=== PATIENT | male | born 1950 | race Caucasian/White ===

== ENCOUNTER 2018-01-16 12:54 | Outpatient (REF) | payer MEDICARE, OTHER, SELFPAY ==
[2018-01-16 13:21] LABS: Anion Gap 8.9 mmol/L (3-11); BUN 18 mg/dL (7-18); CO2 27.1 mmol/L (21.0-32.0); Calcium 8.8 mg/dL (8.5-10.1); Chloride 106 mmol/L (98-107); Glucose 98 mg/dL (70-100); Potassium 4.5 mmol/L (3.5-5.1); Sodium 142 mmol/L (136-145)
[2018-01-16 13:36] LABS: Cholesterol 173 mg/dL (50-200); HDL Cholesterol 48 mg/dL (40-60); LDL CHOLESTEROL 108 mg/dL (<100); Triglyceride 104 mg/dL (30-150)
== END 2018-01-16 13:14 ==
LOC: NCHCN 12:54
PROVIDERS: PCP Nurse Practitioner; Visit Provider Nurse Practitioner
DX: I10 Essential (primary) hypertension (principal)
CPT/HCPCS: 80048; 80061; 83721

== ENCOUNTER 2018-04-20 09:21 | Outpatient (REF) | payer MEDICARE, OTHER, SELFPAY ==
[2018-04-20 12:38] LABS: Cholesterol 176 mg/dL (50-200); HDL Cholesterol 58 mg/dL (40-60); LDL CHOLESTEROL 100 mg/dL (<100); Triglyceride 79 mg/dL (30-150)
== END 2018-04-20 09:41 ==
LOC: NCHCN 09:21
PROVIDERS: PCP Nurse Practitioner; Visit Provider Nurse Practitioner
DX: I25.10 Atherosclerotic heart disease of native coronary artery without angina pectoris (principal)
CPT/HCPCS: 80061; 83721

== ENCOUNTER 2018-07-22 10:23 | Emergency (ER) | payer MEDICARE, OTHER, SELFPAY ==
[2018-07-22 10:26] VITALS: BP 180/112; PULSE 78; RESP 20; TEMP 36.9; O2SAT 96
--- NOTE | 2018-07-22 10:36 | DI.CT_ITS ---
SYMPTOM/DIAGNOSIS: FALL, HIT POSTERIOR HEAD CRANIAL CT: 07/22/[address] was performed. There is partial opacification of maxillary and ethmoid sinuses bilaterally consistent with chronic sinusitis. Left mastoid air cells are opacified and there appears to be increased radiodensity in middle ear cavity as well, mastoiditis and/or cholesteatoma not excluded. There is moderate generalized cerebral atrophy. No evidence of acute intracranial hemorrhage, mass effect or midline shift. CONCLUSION: No evidence of acute intracranial injury. Increased radiodensity in left mastoid air cells and middle ear cavity, mastoiditis and/or cholesteatoma. Correlation with temporal bone CT and/or MRI recommended. CERVICAL SPINE CT: 07/22/18 CT examination of the cervical spine was performed utilizing multislice acquisition and multiplanar reconstruction. There are mild degenerative changes of the cervical spine. No evidence of fracture or facet dislocation. Tracheolaryngeal structures appear intact. No cervical mass or adenopathy seen. Visualized lung apices are clear. CONCLUSION: No evidence of acute cervical injury.
--- NOTE | 2018-07-22 10:41 | ED.GENADUL_ITS ---
Discharge Plan Disposition Patient Disposition: HOME Condition: Good Discharge Details Chief Complaint: HeadInjury Clinical Impression: Concussion, Fall Primary Care Provider: May Martinez ED Provider: Ricardo Orr Home Meds and New Rx's Prescriptions: No Action multivitamin [Multiple Vitamins] 1 EACH tablet 1 ea PO DAILY RF: 0 aspirin [Aspir-81] 81 MG tablet,delayed release (DR/EC) 81 mg PO DAILY RF: 0 amlodipine [Norvasc] 10 MG tablet 10 mg PO DAILY RF: 0 fluticasone propion-salmeterol [Advair Diskus] 1 EACH blister with device 1 puff Inhalation BID RF: 0 saw palmetto-pumpkin seed oil 160 MG capsule 160 mg PO DAILY RF: 0 Fluticasone/Salmeterol [Fluticasone-Salmeterol 113-14] 1 EACH AER.POW.BA 1 ea Inhalation BID RF: 0 fluvastatin 40 mg Capsule 40 mg PO DAILY RF: 0 Discharge Instructions Instructions: Concussion (ED) Additional Instructions: If you notice any worsening of your symptoms, or any new symptoms such as vomiting, diarrhea, fever, chills, shortness of breath, chest pain, numbness, weakness, or fainting , please return immediately to the emergency department for reevaluation. Please follow up with your primary care provider as soon as possible for reassessment and reevaluation. As always, it was a pleasure participating in your medical care today. Referrals: May Martinez [Primary Care Provider] - Medical Decision Making This is a 68-year-old male with a past medical history of updated tetanus 2017, hypertension high cholesterol who presents today for evaluation of a fall. Patient had a mechanical slip on ice and hit the back of his head. No loss of consciousness. He was dazed and confused for the first 10-15 minutes after the episode, however this improved and resolved by the time he arrived. He has a small abrasion on the superior aspect of his posterior scalp. No evidence of concerning red flags of midline tenderness, hemotympanum, or neurologic deficit on exam. Due to the patient's age, aspirin use, and initial event and mechanism, will get a CT scan of the head neck to rule out acute pr ocess. If this is negative I feel the patient has suffered from a concussion from his fall, will require rest close follow-up otherwise. 12:[address] scan results have returned the head and neck, there is no evidence of acute fracture, bleed, or other acute process. Patient's repeat neurologic exam continues to remain normal, mental status is excellent. I feel he has suffered from a mild concussion. We discussed red flags which to return. I have extensively reviewed the treatment plan and discharge instructions with the patient. I have addressed all patient concerns at this time. The patient was made aware of what symptoms to monitor for that would warrant a return to the emergency department. Discussed the plan with the patient, they demonstrate verbal understanding and agreement with our assessment and plan at this time. COMPARISON: No relevant prior studies available. FINDINGS: Brain: No acute intracranial hemorrhage. There is mild diffuse heterogeneity of the white matter attenuation, consistent with chronic white matter ischemic changes. Mild cerebral atrophy Ventricles: Normal. No ventriculomegaly. Bones/joints: Unremarkable. No acute fracture. Sinuses: Opacities in the maxillary sinuses and ethmoid sinuses and frontal sinuses may represent sinusitis. Mastoid air cells: Visualized mastoid air cells are unremarkable. No mastoid effusion. Soft tissues: Unremarkable. IMPRESSION: 1. No acute intracranial hemorrhage. 2. Opacities in the maxillary sinuses and ethmoid sinuses and frontal sinuses may represent sinusitis. EXAM: CT Cervical Spine Without Contrast EXAM DATE/TIME: 07/22/2018 10:37 AM CLINICAL HISTORY: 68 years old, male; Injury or trauma; Fall; Initial encounter; Concussion / head injury; Consciousness not specified; Concussion /head injury; Injury details: Fall. Hit posterior head TECHNIQUE: Imaging protocol: Axial computed tomography images of the cervical spine without intravenous contrast. Coronal and sagittal reformatted images were created and reviewed. Radiation optimization: All CT scans at this facility use at least one of these dose optimization techniques: automated exposure control; mA and/or kV adjustment per patient size (includes targeted exams where dose is matched to clinical indication); or iterative reconstruction. COMPARISON: No relevant prior studies available. FINDINGS: Vertebrae: No acute fracture of the cervical spine. No subluxation or dislocation of the cervical spine. Anterior osteophyte formation C5-C7 Degenerative changes in the facets at multiple levels Degenerative changes at C1/C2 Discs/Spinal canal/Neural foramina: Intervertebral disc space narrowing C5-C7 may represent degenerative disc disease.. Posterior osteophyte formation C5-C7. Soft tissues: Unremarkable. Thyroid: The thyroid is unremarkable Lungs: Lung apices are normal. IMPRESSION: 1. No acute fracture of the cervical spine. 2. No subluxation or dislocation of the cervical spine. 3. Intervertebral disc space narrowing C5-C7 may represent degenerative disc disease. Recommend MRI for further evaluation. Dictated and Authenticated by: Rebekah Richmond MD. Ordering:ALEXUS Silva MD HPI General Date/Time Provider Initiated Documentation: 07/22/18 10:36 . HPI Narrative: This is a 68-year-old male with a past medical history of hypertension, high cholesterol, taking a daily 81 mg aspirin, who presents today for evaluation of fall and hitting his head. Roughly 30-45 minutes prior to arrival he slipped on ice, fell and hit the back of his head. He had no loss of consciousness but was slightly dazed and confused for the 10-15 minutes after the initial event. He is able to walk, ambulate, and had no vomiting, or severe headache. However his significant other did recommend that he come in for further evaluation due to his slight change in mentation initially. At this point the patient and his significant other state that he is returned to his baseline, he does have mild headache in the back of his head, but denies any vision changes, vomiting, nausea, chest pain, neck pain, numbness tingling or weakness, fever, chills or other complaints. Aside for his daily aspirin he is not on any other blood thinners. He denies any other modifying factors or any other complaints. Related Data Home Medications Medication Instructions Recorded Confirmed Fluticasone/Salmeterol 1 ea INHALATION BID 09/28/17 07/22/18 [Fluticasone-Salmeterol 113-14] amlodipine [Norvasc] 10 mg PO DAILY tab-cap 09/28/17 07/22/18 aspirin [Aspir 81] 81 mg PO DAILY tab-cap 09/28/17 07/22/18 fluticasone propion-salmeterol 1 puff INHALATION BID disk 09/28/17 07/22/18 [Advair 100/50 Diskus] multivitamin [Multiple Vitamins] 1 ea PO DAILY 09/28/17 07/22/18 saw palmetto-pumpkin seed oil 160 mg PO DAILY 09/28/17 07/22/18 fluvastatin 40 mg PO DAILY 07/22/18 07/22/18 Allergies Allergy/AdvReac Type Severity Reaction Status Date / Time crab Allergy Severe facial Unverified 07/22/18 10:31 swelling lisinopril Allergy Severe tongue Unverified 07/22/18 10:31 swells environmental Allergy Intermediate rhinitis Uncoded 07/22/18 10:31 General Stated Complaint: HeadInjury ZOEY: 3 Review of Systems Review of Systems All systems reviewed & are unremarkable except as noted in HPI and below PFSH Social History Smoking/Tobacco Use Status: Never Alcohol Intake: current Alcohol Intake frequency: 0-2 drinks per day Alcohol type: wine Substance use type: does not use Exam Narrative Exam Narrative: 1.Const: Well-nourished, Well-developed, appearing stated age 2.Eyes: PERRL, no conjunctival injection, and symmetrical lids. 3.ENT: Atraumatic external nose and ears. Moist MM. Neck: Symmetric, trachea midline, No thyromegaly. Patient demonstrates intact dentition with no signs of tooth avulsion or fracture, no signs of jaw deformity, no evidence of a LeFort's fracture, with an intact palate, nose and orbital region. There is no evidence of a nasal septal hematoma. No proptosis. Jaw closes symmetrically. Airway is clear. There is no evidence of raccoon eyes, ruiz sign, CSF rhinorrhea, mastoid tenderness, cranial crepitus, hemotympanum, exophthalmos, or hyphema. 4.CVS: +S1/S2, No murmurs or gallops. Peripheral pulses 2+ and equal in all extremities. Brisk capillary refill in all extremities. 5.RESP: Unlabored respiratory effort. Clear to auscultation bilaterally. No wheezes rales or rhonchi 6.GI: Soft, Nontender/Nondistended, No hepatosplenomegaly. No guarding or rebound. 7.MSK: Normocephalic/Atraumatic, Extremities w/o deformity or ttp No cyanosis or clubbing, Normal movement of all extremities. No midline tenderness to palpation over the CTLS spine. Normal ROM in flexion, extension, side bend, and rotation. Patient has +5 out of 5 strength in the lower extremities in dorsiflexion and plantarflexion, knee flexion and extension, hip flexion and extension. There is +2 over 2 dorsalis pedis pulses bilaterally. There is normal sensation to the skin with light touch at the foot, knee, and hip. Normal saddle sensation. Good sensation over the deep sural nerve area bilaterally. Rectal exam deferred. Reflexes are +2 over 4 in the patellar reflex bilaterally. +5 out of 5 strength in the medial, ulnar, radial nerve distribution bilaterally in the hands as well as intact light touch sensation to these dermatomes on the hands 8.Skin: Warm, Dry. Mild abrasion to the posterior superior scalp. No evidence of laceration. 9.Neuro: screw machine adjuster automatic II-XII grossly intact. Sensation grossly intact, no focal neurologic deficits. All 6 cardinal planes of vision are fully intact. No evidence of rotatory or vertical nystagmus. The patient demonstrated a normal [id number], good dexterity. There was no evidence of dysdiadochokinesia. Patient was able to ambulate without difficulty. There was no wide-based gait. Romberg, and [id number] are both normal on testing. Sensation was intact bilaterally as well as muscle strength bilaterally for all extremities. Patient was able to verbalize butter cup with no slurring, or miss pronunciation. 10.Psych: (AAO) x3. Appropriate mood and affect Course Vital Signs Temperature 36.9 C 07/22/18 10:26 Pulse 78 07/22/18 10:26 Respiratory Rate 20 07/22/18 10:26 Blood Pressure 180/112 H 07/22/18 10:26 Pulse Oximetry 96 07/22/18 10:26 Temperature 36.9 C 07/22/18 10:26 Temperature Source Skin 07/22/18 10:26 Pulse 78 07/22/18 10:26 Respiratory Rate 20 07/22/18 10:26 Blood Pressure 180/112 H 07/22/18 10:26 Blood Pressure Position Sitting 07/22/18 10:26 Pulse Oximetry 96 07/22/18 10:26 Oxygen Delivery Method Room Air 07/22/18 10:26 Oxygen Flow Rate 0 07/22/18 10:26
[2018-07-22 11:06] VITALS: BP 165/99; PULSE 75; RESP 16; TEMP 36.8; O2SAT 97
--- NOTE | 2018-07-22 12:01 | DI.VRAD_ITS ---
EXAM: CT Head Without Contrast EXAM DATE/TIME: 07/22/2018 10:37 AM CLINICAL HISTORY: 68 years old, male; Injury or trauma; Fall; Initial encounter; Concussion / head injury; Consciousness not specified; Concussion /head injury; Injury details: Fall. Hit posterior head TECHNIQUE: Imaging protocol: Axial computed tomography images of the head/brain without contrast. Coronal and sagittal reformatted images were created and reviewed. Radiation optimization: All CT scans at this facility use at least one of these dose optimization techniques: automated exposure control; mA and/or kV adjustment per patient size (includes targeted exams where dose is matched to clinical indication); or iterative reconstruction. COMPARISON: No relevant prior studies available. FINDINGS: Brain: No acute intracranial hemorrhage. There is mild diffuse heterogeneity of the white matter attenuation, consistent with chronic white matter ischemic changes. Mild cerebral atrophy Ventricles: Normal. No ventriculomegaly. Bones/joints: Unremarkable. No acute fracture. Sinuses: Opacities in the maxillary sinuses and ethmoid sinuses and frontal sinuses may represent sinusitis. Mastoid air cells: Visualized mastoid air cells are unremarkable. No mastoid effusion. Soft tissues: Unremarkable. IMPRESSION: 1. No acute intracranial hemorrhage. 2. Opacities in the maxillary sinuses and ethmoid sinuses and frontal sinuses may represent sinusitis. EXAM: CT Cervical Spine Without Contrast EXAM DATE/TIME: 07/22/2018 10:37 AM CLINICAL HISTORY: 68 years old, male; Injury or trauma; Fall; Initial encounter; Concussion / head injury; Consciousness not specified; Concussion /head injury; Injury details: Fall. Hit posterior head TECHNIQUE: Imaging protocol: Axial computed tomography images of the cervical spine without intravenous contrast. Coronal and sagittal reformatted images were created and reviewed. Radiation optimization: All CT scans at this facility use at least one of these dose optimization techniques: automated exposure control; mA and/or kV adjustment per patient size (includes targeted exams where dose is matched to clinical indication); or iterative reconstruction. COMPARISON: No relevant prior studies available. FINDINGS: Vertebrae: No acute fracture of the cervical spine. No subluxation or dislocation of the cervical spine. Anterior osteophyte formation C5-C7 Degenerative changes in the facets at multiple levels Degenerative changes at C1/C2 Discs/Spinal canal/Neural foramina: Intervertebral disc space narrowing C5-C7 may represent degenerative disc disease.. Posterior osteophyte formation C5-C7. Soft tissues: Unremarkable. Thyroid: The thyroid is unremarkable Lungs: Lung apices are normal. IMPRESSION: 1. No acute fracture of the cervical spine. 2. No subluxation or dislocation of the cervical spine. 3. Intervertebral disc space narrowing C5-C7 may represent degenerative disc disease. Recommend MRI for further evaluation. Dictated and Authenticated by: Rebekah Richmond MD. Ordering:ALEXUS Silva MD
[2018-07-22 12:08] VITALS: BP 151/95; PULSE 71; RESP 18; TEMP 37; O2SAT 95
--- NOTE | 2018-07-25 08:14 | W.ED.FU ---
Date of service: 07/25/18 Time of Service: 08:14 Follow Up Plan: I was contacted by the radiologist Dr. Perales, upon re-read of the patient's initial CT scan that was initially read by virtual radiology, Dr. Perales noticed concern for increased radiodensity in the left mastoid air cell and middle ear cavity, mastoiditis or cholesteatoma. Recommended outpatient temporal bone CT or MRI. I did contact the patient, and he is doing very well. He has had no more headache, he feels excellent, no complaints of dizziness, tinnitus or other abnormality. He does note that in the past he actually had a cholesteatoma on the left, with subsequent surgical procedure through the left mastoid. He does recall history of fluid collection postoperatively. However I did recommend that he follow-up closely with his primary care provider, and get records from his ENT down in [facility] where he had this procedure previously done. With no acute change in symptoms, I do not think that emergent follow-up is indicated but certainly close and urgent follow-up with his PCP is necessary. I discussed red flags which to immediately return and the patient understands. All questions were answered. CRANIAL CT: 07/22/[address] was performed. There is partial opacification of maxillary and ethmoid sinuses bilaterally consistent with chronic sinusitis. Left mastoid air cells are opacified and there appears to be increased radiodensity in middle ear cavity as well, mastoiditis and/or cholesteatoma not excluded. There is moderate generalized cerebral atrophy. No evidence of acute intracranial hemorrhage, mass effect or midline shift. CONCLUSION: No evidence of acute intracranial injury. Increased radiodensity in left mastoid air cells and middle ear cavity, mastoiditis and/or cholesteatoma. Correlation with temporal bone CT and/or MRI recommended. CERVICAL SPINE CT: 07/22/18 CT examination of the cervical spine was performed utilizing multislice acquisition and multiplanar reconstruction. There are mild degenerative changes of the cervical spine. No evidence of fracture or facet dislocation. Tracheolaryngeal structures appear intact. No cervical mass or adenopathy seen. Visualized lung apices are clear. CONCLUSION: No evidence of acute cervical injury. [id number]: Total DLP = 0.00 mGy-cm
== END 2018-07-22 12:14 | disposition home or self-care (01) ==
PROVIDERS: Emergency Provider Student in an Organized Health Care Education/Training Program; PCP Nurse Practitioner
DX: S06.0X0A Concussion without loss of consciousness, initial encounter (principal); I10 Essential (primary) hypertension; W00.0XXA Fall on same level due to ice and snow, initial encounter
CPT/HCPCS: 99284; 70450; 72125

== ENCOUNTER 2019-01-16 09:52 | Outpatient (REF) | payer MEDICARE, OTHER, SELFPAY ==
[2019-01-16 12:31] LABS: Anion Gap 9.2 mmol/L (3-11); BUN 22 mg/dL (7-18); CO2 26.8 mmol/L (21.0-32.0); CREATININE 0.87 mg/dL (0.70-1.30); Calcium 9.3 mg/dL (8.5-10.1); Calculated LDL 76 mg/dL; Chloride 103 mmol/L (98-107); Cholesterol 153 mg/dL (50-200); Glucose 110 mg/dL (70-100); HDL Cholesterol 65 mg/dL (40-60); Potassium 4.7 mmol/L (3.5-5.1); Sodium 139 mmol/L (136-145); Triglyceride 60 mg/dL (30-150)
== END 2019-01-16 10:12 ==
LOC: NCHCN 09:52
PROVIDERS: PCP Nurse Practitioner; Visit Provider Nurse Practitioner Family
DX: I25.10 Atherosclerotic heart disease of native coronary artery without angina pectoris (principal); I10 Essential (primary) hypertension
CPT/HCPCS: 80048; 80061

== ENCOUNTER 2020-01-16 15:03 | Outpatient (REF) | payer MEDICARE, OTHER, SELFPAY ==
[2020-01-20 12:50] LABS: Patient Race White; SARS-CoV-2 RNA Undetected (Undetected); SARS-CoV-2 Specimen Source Nasal
== END 2020-01-16 15:23 ==
LOC: NCHCN 15:03
PROVIDERS: PCP Nurse Practitioner; Visit Provider Nurse Practitioner Family
DX: Z20.828 Contact with and (suspected) exposure to other viral communicable diseases (principal)
CPT/HCPCS: U0003

== ENCOUNTER 2020-02-04 01:18 | Outpatient (CLI) | payer MEDICARE, OTHER, SELFPAY ==
--- NOTE | 2020-02-04 08:00 | DI.CT_ITS ---
EXAM: CT TEMPORAL BONE WO CLINICAL HISTORY: history of cholesteatoma, retraction pocket,ASYMMETRIC HEARING LOSS,Z86.69, TECHNIQUE: COMPARISON: CT CT HEAD CERVICAL SPINE WO from 07/22/2018 FINDINGS: CT examination of the temporal bone region was performed according to the usual protocol. Note is ma de of mild mucoperiosteal thickening of ethmoid sinuses bilaterally, and probable small retention cys ts of the floor of the right maxillary antrum, otherwise the sphenoid, maxillary, and frontal sinuses are clear. Right mastoid air cells are clear. Right inner and middle ear structures appear intact On the left, the patient reportedly has history of cholesteatoma. There is opacification of the mast oid air cells with significant bony destruction. Soft tissue radiodensity extends into the middle ea r cavity with apparent destruction of the incus and to some degree the malleus. The cochlear and arthur icircular canals appear intact as does the internal auditory canal. No soft tissue abnormality seen involving the posterior fossa cranial contents. IMPRESSION: Findings consistent with left cholesteatoma. Little interval change in appearance in comparison with prior CT of July 22, 2018. RADIATION DOSE DELIVERED: 320.42mGy.cm Total DLP
== END 2020-02-04 01:38 ==
PROVIDERS: PCP Nurse Practitioner; Visit Provider Otolaryngology
DX: H91.90 Unspecified hearing loss, unspecified ear; Z86.69 Personal history of other diseases of the nervous system and sense organs; H73.892 Other specified disorders of tympanic membrane, left ear
CPT/HCPCS: 70480

== ENCOUNTER 2020-04-29 17:45 | Outpatient (REF) | payer MEDICARE, OTHER, SELFPAY ==
[2020-04-29 22:18] LABS: Anion Gap 11.1 mmol/L (3-11); BUN 22 mg/dL (7-18); CO2 22.9 mmol/L (21.0-32.0); CREATININE 1.17 mg/dL (0.70-1.30); Chloride 104 mmol/L (98-107); Glucose 99 mg/dL (74-106); Potassium 4.2 mmol/L (3.5-5.1); Sodium 138 mmol/L (136-145)
[2020-04-29 22:26] LABS: Hemoglobin A1C 5.7 % (<5.7)
== END 2020-04-29 18:05 ==
LOC: NCHCN 17:45
PROVIDERS: PCP Nurse Practitioner; Visit Provider Nurse Practitioner Family
DX: I10 Essential (primary) hypertension (principal); Z00.00 Encounter for general adult medical examination without abnormal findings
CPT/HCPCS: 80048; 84153; 83036

== ENCOUNTER 2020-07-24 16:50 | Outpatient (REF) | payer MEDICARE, OTHER, SELFPAY ==
[2020-07-25 02:37] LABS: COVID-19 RT-PCR UVMMC Result Negative (Negative)
== END 2020-07-24 16:51 | disposition home or self-care (01) ==
LOC: NCHCN 16:50
PROVIDERS: PCP Nurse Practitioner; Visit Provider Nurse Practitioner Family
DX: Z20.822 Contact with and (suspected) exposure to COVID-19 (principal)
CPT/HCPCS: 87635; U0003; U0005

== ENCOUNTER 2021-04-29 18:20 | Outpatient (REF) | payer MEDICARE, OTHER, SELFPAY ==
[2021-04-29 14:40] LABS: HCT 47.5 % (40.0-50.0); HGB 15.9 g/dL (13.5-17.5); MCH 31.3 pg (27.0-33.0); MCHC 33.5 % (32.0-36.0); MCV 93.5 fL (80-95); MPV 10.7 fL (8.0-11.0); Platelet Count 291 10^3/uL (130-400); RBC 5.08 10^6/uL (4.36-5.78); RDW-SD 45.1 fL; WBC 5.71 10^3/uL (4.4-10.8)
[2021-04-29 15:10] LABS: Hemoglobin A1C 5.7 % (<5.7)
[2021-04-29 15:17] LABS: Anion Gap 10.3 mmol/L (3-11); BUN 19 mg/dL (7-18); CO2 25.7 mmol/L (21.0-32.0); CREATININE 0.8 mg/dL (0.70-1.30); Calcium 9.3 mg/dL (8.5-10.1); Chloride 102 mmol/L (98-107); Glucose 105 mg/dL (74-106); Potassium 3.7 mmol/L (3.5-5.1); Sodium 138 mmol/L (136-145)
[2021-04-29 22:17] LABS: PSA, Screening 0.9 ng/mL (0.0-6.5)
== END 2021-04-29 18:21 | disposition home or self-care (01) ==
LOC: NCHCN 18:20
PROVIDERS: PCP Nurse Practitioner; Visit Provider Nurse Practitioner Family
DX: R73.03 Prediabetes (principal); I10 Essential (primary) hypertension; Z12.5 Encounter for screening for malignant neoplasm of prostate
CPT/HCPCS: 80048; 84153; 85027; 83036

== ENCOUNTER 2021-05-14 00:49 | Outpatient (CLI) | payer MEDICARE, OTHER, SELFPAY ==
--- NOTE | 2021-05-14 08:00 | DI.US_ITS ---
Exam(s) US AAA SCREENING EXAM: US AAA SCREENING CLINICAL HISTORY: FORMER SMOKER, Z87.891,screening for aaa COMPARISON: No exams were available for comparison FINDINGS: Abdominal Aorta: Proximal: 2.7 x 2.7 cm Mid: 2.1 x 2.4 cm Distal: 2.0 x 1.9 cm Iliac's: Right: 1.2 x 1.5 cm Left: 1.4 x 1.5 cm No evidence of an abdominal aortic aneurysm. IMPRESSION: No evidence of abdominal aortic aneurysm. DATA REPOSITORY:
== END 2021-05-14 01:09 ==
PROVIDERS: PCP Nurse Practitioner; Visit Provider Nurse Practitioner Family
DX: Z13.6 Encounter for screening for cardiovascular disorders (principal); Z87.891 Personal history of nicotine dependence
CPT/HCPCS: 76706

== ENCOUNTER 2021-10-28 08:47 | Outpatient (REF) | payer MEDICARE, OTHER, SELFPAY ==
[2021-10-28 14:44] LABS: Calculated LDL 115 mg/dL (<100); Cholesterol 198 mg/dL (<200); HDL Cholesterol 65 mg/dL (40-60); Triglyceride 90 mg/dL (<150)
[2021-10-29 10:41] LABS: HIV-1/2 Ag & Ab Screen Negative (Negative)
[2021-10-29 10:56] LABS: Hepatitis C Ab w Rflx HCV PCR Negative (Negative)
== END 2021-10-28 08:48 | disposition home or self-care (01) ==
LOC: NCHCN 08:47
PROVIDERS: PCP Nurse Practitioner; Visit Provider Nurse Practitioner Family
DX: I25.10 Atherosclerotic heart disease of native coronary artery without angina pectoris (principal); Z11.4 Encounter for screening for human immunodeficiency virus [HIV]; Z11.59 Encounter for screening for other viral diseases
CPT/HCPCS: 80061; 86803; 87389

== ENCOUNTER → 2022-03-24 09:40 | Outpatient (BNVA) | payer MEDICARE, OTHER, SELFPAY | PROVIDERS: PCP Nurse Practitioner; Referring Provider Nurse Practitioner; Visit Provider Physical Therapy Assistant | DX: Z12.11 Encounter for screening for malignant neoplasm of colon (principal); Z86.010 Personal history of colon polyps ==

== ENCOUNTER 2022-04-07 08:14 | Day surgery (SDC) | payer MEDICARE, OTHER, SELFPAY ==
--- NOTE | 2022-04-06 18:00 | ANES.PREOP_ITS ---
General Info Date of Service Date Performed: 04/07/22 Height: 5 ft 11.5 in Weight: 87.26 kg Body Mass Index (BMI): 26.4 Surgical Procedure: Operation Date: 04/07/22 09:35 Proposed Procedure Side Surgeon mansi Adkins MD Meds Allergies and Home Medications Allergies Allergy/AdvReac Type Severity Reaction Status Date / Time crab Allergy Severe facial Unverified 04/07/22 08:28 swelling, tongue swells lisinopril Allergy Severe tongue Unverified 04/07/22 08:28 swells simvastatin AdvReac Unknown muscle Verified 04/07/22 08:28 aches environmental AdvReac Intermediate rhinitis, Uncoded 04/07/22 08:28 itchy eyes Home Medication Medication Instructions Recorded amlodipine 10 mg tablet (Norvasc) 10 mg PO HS 09/28/17 fluticasone 100 mcg-salmeterol 50 1 puff inhalation BID 09/28/17 mcg/dose blistr powdr for inhalation (Advair Diskus) multivitamin (Multiple Vitamins 1 ea PO DAILY 09/28/17 tablet) saw palmetto-pumpkin seed oil 160 160 mg PO DAILY 09/28/17 mg capsule coenzyme Q10 75 mg capsule (Ultra 75 mg PO DAILY 06/17/21 CoQ10) fluvastatin 20 mg capsule 20 mg PO DAILY 06/17/21 hydrochlorothiazide 12.5 mg capsule 12.5 mg PO DAILY 06/17/21 Current Visit Medications: Current Medications Generic Name Dose Route Start Last Admin Trade Name Freq PRN Reason Stop Dose Admin Ringer's Solution 1,000 mls @ 80 mls/hr 04/07/22 06:00 IV 05/06/22 23:59 INFUSION PITO IV Miscellaneous Supplies 1 each 04/07/22 06:00 Iv Access IV 05/06/22 23:59 DIRECTED PITO Sodium Chloride 0 ml 04/07/22 06:00 Normal Saline Flush 10 Ml Syr IV 05/06/22 23:59 PRN PRN Sodium Chloride 0 ml 04/07/22 06:00 Normal Saline 10 Ml Vial IJ 05/06/22 23:59 DIRECTED PRN Sterile Water 0 ml 04/07/22 06:00 Water,Injection,Sterile 10 Ml Vial IJ 05/06/22 23:59 DIRECTED PRN PFSH Active Problems Active Problems: Problem Status Onset Code History of cholesteatoma Z86.69 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 07/28/20, report indicated difficult intubation, took 2 tries, due to irration in throat from inhaler use; he has since had a Rx change for inhaler, see comment on surg sched Surgical History Surgical History History of bunionectomy of left great toe 01/2015 History of colonoscopy with polypectomy (~01/04/19) [facility], Dr.Mark Leger sessile polyp, recommend 3 yr screening History of ear surgery internal multiple; 12/02/2010, 07/28/[address] [facility] Hx of umbilical hernia repair 06/08/98 [facility] Tobacco Smoking/Tobacco Use Status: Former Tobacco Use Alcohol Alcohol Intake: current Alcohol intake frequency: 0-2 drinks per day Alcohol type: wine Substance Use Substance use type: does not use Vital Signs and Lab Results Vital Signs Most Recent Vital Signs in EMR: Temp Pulse Resp BP Pulse Ox 36.3 C L 70 16 147/97 H 97 04/07/22 08:20 04/07/22 08:20 04/07/22 08:20 04/07/22 08:20 04/07/22 08:20 Lab Results Blood Type / Crossmatch: No Data to Display Complete Blood Count: No Data to Display Complete Metabolic Panel: No Data to Display Liver Function Panel: No Data to Display Coagulation Panel: No Data to Display Cardiac Panel: No Data to Display Arterial Blood Gas: No Data to Display Venous Blood Gas: No Data to Display Pancreas Panel: No Data to Display Thyroid Panel: No Data to Display Infectious Disease: No Data to Display Blood Cultures: No Data to Display Toxicology Panel: No Data to Display Anesthesia Assessment and Plan Anesthesia History Personal History: Other Family History: No Family History of Anesthesia Complications Exercise Tolerance Exercise Tolerance: Metabolic Equivalents>4 Cardiac & Pulmonary Exam Cardiac Exam: Normal S1/S2 Heart Sounds Pulmonary Exam: Clear Bilateral Breath Sounds Implantable Cardiac Device Does patient have a Pacemaker or an ICD?: No Airway Exam Known Difficult Airway: No Mallampati Class: 3 Mouth Opening: Narrow (< 3cm) Thyromental Distance: Less than 3 cm Neck Range of Motion: Full ROM Neck Circumference: Normal Teeth Condition: Normal Dentition ASA Classification ASA Score: ASA 2 Emergency Case?: No NPO Status NPO Status: NPO Clears >2 hours, Solids >8 hours Anesthesia Plan Resuscitation Status: Full Code Anesthesia Technique: General Anesthesia Airway Planned: Natural Airway Monitors Used: Standard Monitors Preoperative Comments:: 72 yo male for colonoscopy. Sig PMHx: preDM (last A1c 5.7), asthma (advair), HTN (amlodipine, hydrochlorothiazide), ASVCD (listed in hx, no imaging/testing noted), former smoker, occ EtOH. Previous Anes: - tympanoplasty, easy mask, grade 3 with mac 4, grade 3 with grade 2.
--- NOTE | 2022-04-06 19:29 | W.PM.DSUDISC ---
Date of service: 04/07/22 Time of Service: 10:08 Discharge Plan Disposition Patient Disposition: Home Condition: Good Discharge Details Reason For Visit: Screening colonoscopy Attending Provider: Js Adkins Primary Care Provider: Mirta Villarreal Home Meds and New Rx's Prescriptions: Continued multivitamin [Multiple Vitamins] 1 EACH tablet 1 ea PO DAILY amlodipine [Norvasc] 10 MG tablet 10 mg PO HS fluticasone propion-salmeterol [Advair Diskus] 1 EACH blister with device 1 puff Inhalation BID saw palmetto-pumpkin seed oil 160 MG capsule 160 mg PO DAILY fluvastatin 20 mg capsule 20 mg PO DAILY hydrochlorothiazide 12.5 mg capsule 12.5 mg PO DAILY Ultra CoQ10 75 mg capsule 75 mg PO DAILY Discontinued bisacodyl [Dulcolax (bisacodyl)] 5 mg tablet,delayed release (DR/EC) 5 mg PO ONCE Qty: 4 0RF Rx Instructions: Take according to provider's instructions for colonoscopy prep. polyethylene glycol 3350 17 gram/dose powder 17 g PO ONCE Qty: 238 0RF Rx Instructions: To be taken as directed by prescriber's office for colonoscopy prep. Discharge Instructions Instructions: Colorectal Polyps (GEN) Additional Instructions: 1. If tolerated, consume a soft, low fiber diet for 1-2 days. 2[address] Do not drive, drink alcohol, operate machinery, make critical decisions, or do activities that require coordination or balance for 24 hours. 3. Because air was put into your colon during the procedure, expelling air from your rectum (passing gas or farting) is normal. 4. You may not have a bowel movement for 1-3 days because of the colonoscopy prep. This is normal. 5. Go directly to the emergency room if you notice any of the following: Develop chills (warm to touch), or if you have a thermometer and your temperature is above 101 Difficulty breathing or difficultly swallowing Persistent vomiting Severe abdominal pain, other than gas cramps Severe chest pain Black, tarry stools Any bleeding ? exceeding one tablespoon 6. Call your physician if the site where your intravenous was started becomes red, swollen, painful, and warm to touch. 7. Your physician has reviewed your pre-procedure medications. Please continue to take those medications as previously ordered. You will be given specific information/education regarding any changes to your medications before leaving. Activity:: Activity as Tolerated Diet:: As Tolerated Discharge Orders Discharge Orders: Discharge Order (Routine); Ordered 04/06/22 Ordered By: Js Adkins DS: Diagnosis Discharge Diagnosis (1) Screening for colon cancer: Status: Acute Asessment and Plan: I will contact you with the pathology report of the polyp that I removed once it is available.
--- NOTE | 2022-04-06 19:31 | W.COLOREPORT ---
Date of service: 04/07/22 Time of Service: 10:11 Colonoscopy Report Date of procedure: 04/07/22 Pre-op diagnosis general: screening colonoscopy Post-op diagnosis procedure note: other (Colon polyp) Procedure: Colonoscopy with polypectomy Surgeon: Js Adkins Anesthesia Type: General:No Airway Estimated blood loss (mL): 10 Pathology: other (Polyp at 25 cm) Complications: None Disposition: same day Indications: Ahmet is a 72-year-old male following up for his next screening colonoscopy. He is got a history of colon and rectal polyps removed during previous endoscopic procedures Prep: Miralax/Dulcolax Procedure Start Time: 09:35 Procedure End Time: 09:59 Retraction Time: 15 Findings: Mild diverticulosis, colon polyp at 25 cm Procedure Description: After the induction of monitored anesthetic care, and with the patient in left lateral decubitus position, I began by performing an external anorectal exam.? Perineum and skin were normal, as was the anal verge.? There was no evidence of external hemorrhoids.? Next, I performed a digital rectal exam.? I did not appreciate any abnormal findings.? Next, I advanced a colonoscope into the rectal vault.? I performed retroflexion.? This was normal.? Using insufflation, I then advanced the colonoscope beyond the rectal folds and into the sigmoid colon before advancing towards the cecum.? The quality of the prep was adequate.? The scope was noted to be in the cecum by identification of the ileocecal valve and appendiceal orifice.? I then began withdrawing the colonoscope using repeated irrigation as necessary for full evaluation of the colonic mucosa. Around 25 cm from the anal verge I identified a 0.5 cm polyp. ?It appeared slightly pedunculated in character. ?I was able to remove this with a cold forcep polypectomy. ?I examined the site, and there was minimal bleeding. ?Once this was completed, I continued to withdraw the scope and examine the remainder of the colonic mucosa. ?Once the scope was withdrawn to the level of the rectum, great care was taken to examine portions of the rectal folds.? Finally, the scope was withdrawn and the patient was brought to the same-day surgery recovery unit as the anesthetic wore off. ?The findings and instructions were shared with the patient prior to discharge.
[2022-04-07 08:20] VITALS: BP 147/97; PULSE 70; RESP 16; TEMP 36.3; O2SAT 97
[2022-04-07] MEDS: Lactated Ringers 1,000 ML 80 ML IV ×2 (08:51→08:52)
[2022-04-07 09:18] VITALS: BMI 26.4
--- NOTE | 2022-04-07 10:00 | BOWEL_PTH ---
PATIENT: Ahmet Villar LOC: [facility] U#:[id number] AGE/SX: 72/M ROOM: RE04/07/[address]: Js Adkins MD : [id number] BED: DIS: 04/07/2022 SPEC #: [id number] RECD: 04/07/22 11:49 STATUS: [facility]OS[facility] REQ #: [id number] CELINA: 04/07/22 10:[address]: Js Adkins DEPT: Surgical Specimen RECD BY: Ashley Hernandez ENTERED: 04/07/22 11:50 SP TYPE: Bowel OTHR DR: Mirta Villarreal Tissues: 1 - BIOPSY BOWEL Procedures: GROSS AND MICRO LEVEL 4 Comments: [id number]
[2022-04-07 10:06] VITALS: BP 99/71; PULSE 69; RESP 16; TEMP 36.3; O2SAT 93
[2022-04-07 10:29] VITALS: BP 131/94; PULSE 72; RESP 16; TEMP 36.3; O2SAT 96
--- NOTE | 2022-04-07 10:53 | W.ANESPOSTOP ---
Postoperative Evaluation Date, Time and Location Date Performed: 04/07/22 Time Performed: 10:53 Patient Location: Day Surgery Unit Vital Signs Most Recent Imported Vital Signs: Most Recent Vital Signs Temp Pulse Resp BP Pulse Ox 36.3 C L 72 16 131/94 H 96 04/07/22 10:29 04/07/22 10:29 04/07/22 10:29 04/07/22 10:29 04/07/22 10:29 Pain Score Most Recent Pain Score: Most Recent Pain Score Pain Level 0 04/07/22 10:29 Assessment Mental Status: Awake (Alert & Oriented to Patient Baseline) Airway and Respiratory Function: Patent airway with normal (patient baseline) respiratory exam Cardiovascular Function: Hemodynamically Stable Hydration Status: Adequately Hydrated Nausea & Vomiting: No Nausea or Vomiting Pain: Pt. Denies Any Pain Peripheral Nerve Block: Patient did not receive a nerve block
== END 2022-04-07 10:45 | disposition home or self-care (01) ==
LOC: SUR 08:14
PROVIDERS: PCP Nurse Practitioner Family; Visit Provider Surgery
PROC: 0DJD8ZZ Inspection of Lower Intestinal Tract, Via Natural or Artificial Opening Endoscopic (ICD-10-PCS; CPT 45378; principal; 2022-04-07 09:30)
DX: Z12.11 Encounter for screening for malignant neoplasm of colon (principal); K63.5 Polyp of colon; Z86.010 Personal history of colon polyps
CPT/HCPCS: 45380; 88305

== ENCOUNTER 2022-06-08 15:28 | Outpatient (REF) | payer MEDICARE, OTHER, SELFPAY ==
[2022-06-07 15:26] LABS: HCT 45.4 % (40.0-50.0); HGB 15.1 g/dL (13.5-17.5); MCH 31.3 pg (27.0-33.0); MCHC 33.3 % (32.0-36.0); MCV 94 fL (80-95); MPV 11.4 fL (8.0-11.0); Platelet Count 239 10^3/uL (130-400); RBC 4.83 10^6/uL (4.36-5.78); RDW 12.8 % (11.8-14.1); RDW-SD 44.5 fL; WBC 4.62 10^3/uL (4.4-10.8)
[2022-06-07 15:40] LABS: Hemoglobin A1C 5.6 % (<5.7)
[2022-06-07 15:44] LABS: ALT 24 U/L (16-63); AST 13 U/L (15-37); Albumin 4.2 g/dL (3.4-5.0); Alkaline Phosphatase 49 U/L (46-116); Anion Gap 10.1 mmol/L (3-11); BUN 20 mg/dL (7-18); Bilirubin, Total 0.5 mg/dL (0.2-1.0); CO2 26.9 mmol/L (21.0-32.0); CREATININE 0.9 mg/dL (0.70-1.30); Calcium 9.7 mg/dL (8.5-10.1); Calculated LDL 101 mg/dL (<100); Chloride 105 mmol/L (98-107); Cholesterol 181 mg/dL (<200); Estimated GFR 91.31 (mL/min/1.73m2); Glucose 88 mg/dL (74-106); HDL Cholesterol 70 mg/dL (40-60); Potassium 4.3 mmol/L (3.5-5.1); Sodium 142 mmol/L (136-145); Total Protein 7.6 g/dL (6.4-8.2); Triglyceride 53 mg/dL (<150)
[2022-06-08 18:18] LABS: PSA, Screening 0.6 ng/mL (<=6.5)
== END 2022-06-08 15:29 | disposition home or self-care (01) ==
LOC: NCHCN 15:28
PROVIDERS: PCP Nurse Practitioner Family; Visit Provider Nurse Practitioner Family
DX: I25.10 Atherosclerotic heart disease of native coronary artery without angina pectoris (principal); R73.03 Prediabetes; J45.30 Mild persistent asthma, uncomplicated; I10 Essential (primary) hypertension; Z12.5 Encounter for screening for malignant neoplasm of prostate
CPT/HCPCS: 80053; 80061; 84153; 85027; 83036

== ENCOUNTER 2023-03-23 12:58 | Outpatient (REF) | payer MEDICARE, OTHER, SELFPAY ==
[2023-03-23 14:54] LABS: HCT 44.1 % (40.0-50.0); HGB 15.3 g/dL (13.5-17.5); MCH 31.5 pg (27.0-33.0); MCHC 34.7 % (32.0-36.0); MCV 91 fL (80-95); MPV 10.4 fL (8.0-11.0); Platelet Count 300 10^3/uL (130-400); RBC 4.86 10^6/uL (4.36-5.78); RDW 13.2 % (11.8-14.1); RDW-SD 44.8 fL; WBC 6.33 10^3/uL (4.4-10.8)
[2023-03-23 15:11] LABS: ALT 23 U/L (16-63); AST 17 U/L (15-37); Albumin 4.2 g/dL (3.4-5.0); Alkaline Phosphatase 50 U/L (46-116); Anion Gap 9.7 mmol/L (3-11); BUN 19 mg/dL (7-18); Bilirubin, Total 0.5 mg/dL (0.2-1.0); CO2 26.3 mmol/L (21.0-32.0); CREATININE 0.9 mg/dL (0.70-1.30); Calcium 9.7 mg/dL (8.5-10.1); Chloride 102 mmol/L (98-107); Estimated GFR 90.74 (mL/min/1.73m2); Glucose 104 mg/dL (74-106); Sodium 138 mmol/L (136-145); Total Protein 8.1 g/dL (6.4-8.2)
== END 2023-03-23 12:59 | disposition home or self-care (01) ==
LOC: NCHCN 12:58
PROVIDERS: PCP Nurse Practitioner Family; Visit Provider Nurse Practitioner Family
DX: Z01.818 Encounter for other preprocedural examination (principal)
CPT/HCPCS: 80053; 85027

== ENCOUNTER 2023-04-16 10:21 | Emergency (ER) | payer MEDICARE, OTHER, SELFPAY ==
[2023-04-16 10:24] VITALS: BP 204/95; PULSE 117; RESP 18; TEMP 37.1; O2SAT 96
--- NOTE | 2023-04-16 10:28 | ED.GENADUL_ITS ---
HPI General Stated Complaint: EarProblem Mode of arrival: ambulatory. ZOEY: 3 Date/Time Provider Initiated Documentation: 04/16/23 10:27. Limitations to Documentation: no limitations. Information obtained by: patient. HPI Narrative: Time seen was 1030 am in bed 9. The patient is a 73 yo M with h/o hypertension who did not take his morning antihypertensive meds, who presents with bleeding from his left ear. He had a recurrent resection of a cholesteroma by Dr. Salma Young, [place] [facility] Packing was placed in the left ear canal during the procedure. He was discharged and followed up with a PA who removed some of the packing last week. He was told that the remaining packing would fall out spontaneously. Early this morning he noted significant bleeding from the left ear canal and believes that the remaining packing fell out. However the bleeding was quite brisk and has not improved. He denies and pain, fever, or dizziness. He denies any change in his hearing, but tells me that he has poor hearing on the left side at baseline. He is not on therapeutic anticoagulants. He denies any other bleeding or easy bruising. He denies and epistaxis, gingival bleeding or hematuria. He denies any new ear pain, chest pain, dizziness or shortness of breath. He has Dr. Young's cell phone number but did not try to call him because he thought that he would tell him to come to there ER. The patient tells me his is a nurse who used to work in another ER. She was not home when the bleeding started. He tried put some cotton in the ear to stop the bleeding but tells me that it came out and did not help stop the bleeding. He tells me that he has a titanium stapes and that the cholesteroma began to invade the structures that affect his balance, but he has not had any problems with his balance or dizziness yet. Related Data Home Medications Medication Instructions Recorded Confirmed amlodipine 10 mg tablet (Norvasc) 10 mg PO HS 09/28/17 04/16/23 fluticasone 100 mcg-salmeterol 50 1 puff inhalation BID 09/28/17 04/16/23 mcg/dose blistr powdr for inhalation (Advair Diskus) multivitamin (Multiple Vitamins 1 ea PO DAILY 09/28/17 04/16/23 tablet) saw palmetto-pumpkin seed oil 160 160 mg PO DAILY 09/28/17 04/16/23 mg capsule coenzyme Q10 75 mg capsule (Ultra 75 mg PO DAILY 06/17/21 04/16/23 CoQ10) fluvastatin 20 mg capsule 20 mg PO DAILY 06/17/21 04/16/23 hydrochlorothiazide 12.5 mg capsule 12.5 mg PO DAILY 06/17/21 04/16/23 cephalexin 500 mg tablet 500 mg PO QID #40 tabs 04/16/23 cephalexin 500 mg tablet 500 mg PO QID #40 tabs 04/16/23 tumeric 100 mg-emeka 150 mg-olive 1 cap PO DAILY 04/16/23 04/16/23 50 mg-oreg 150 mg-caprylate capsule Previous Rx's Medication Instructions Recorded cephalexin 500 mg tablet 500 mg PO QID #40 tabs 04/16/23 cephalexin 500 mg tablet 500 mg PO QID #40 tabs 04/16/23 Allergies Allergy/AdvReac Type Severity Reaction Status Date / Time crab Allergy Severe facial Unverified 04/16/23 10:31 swelling, tongue swells lisinopril Allergy Severe tongue Unverified 04/16/23 10:31 swells simvastatin AdvReac Unknown muscle Verified 04/16/23 10:31 aches environmental AdvReac Intermediate rhinitis, Uncoded 04/16/23 10:31 itchy eyes Review of Systems Narrative: see hpi PFSH All Active Problems (Updated 04/16/23 @ 13:14 by Monalisa Tian MD) Bleeding from left ear (Acute) Tubular adenoma of colon (Acute) History of cholesteatoma (Acute) Retraction pocket of tympanic membrane of left ear (Acute) Asymmetrical sensorineural hearing loss (Acute) Prediabetes (Acute) Asthma (Chronic) Hypertension (Chronic) Hyperlipidemia (Acute) Screening for colon cancer (Acute) Medical History (Updated 04/16/23 @ 13:14 by Monalisa Tian MD) Former smoker Heart murmur Basal cell carcinoma, face History of ASCVD Nasal lesion Benign essential tremor Diverticulosis Arthritis of left foot Blepharitis, right eye Surgical History History of bunionectomy of left great toe 01/2015 History of ear surgery internal multiple; 12/02/2010, [place]28[place] [facility]x of umbilical hernia repair 06/08/98 [facility] History of colonoscopy with polypectomy (~01/04/19) 03/2022 [facility], Dr.Mark Leger sessile polyp, recommend 3 yr screening Social History Smoking/Tobacco Use Status: Never Smoking risk assessment performed?: Yes Alcohol Intake: current Alcohol Intake frequency: 0-2 drinks per day Alcohol type: wine Substance use type: does not use Do you feel safe at home: Yes Do you feel safe in your relationship?: Yes Exam Narrative Exam Narrative: The patient is a well developed, well nourished male holding a blue kitchen towel up to his left ear. He is anxious and slightly tachycardic with a heart rate of 117. He is slightly hypertensive with an initial BP o 204/95. He is alert and oriented and does not appear to be in pain. Const General: cooperative, healthy appearing, comfortable, well developed, well groomed and well hydrated Nutritional Appearance: average body habitus and well nourished Orientation: alert, awake and oriented x3 HENMT Head: normal to inspection, normocephalic and atraumatic Ears: hearing grossly normal bilaterally, external ears normal, left TM abnormal, mastoids normal, no periauricular adenopathy, EAC abnormal (there is dark blood dripping from the L ear canal. ) otic discharge (I am unable to visualize the TM or any structures ) bloody and unable to visualize TM (blood in the canal) on the left General nose exam: external nose normal, nares normal and no nasal discharge Face and sinus: normal facial exam, sinuses nontender and face symmetric Mouth: oral mucosae normal, lip normal, tongue normal, oropharynx normal, moist mucous membranes and other (Normal phonation. The patient is handling secretion s.) Throat: posterior oropharynx normal and uvula midline Eyes General: appearance normal, both eyes and all related structures Eyelids: eyelids normal Conjunctivae: conjunctivae normal Sclera: sclerae normal Cornea: corneas normal Pupils: PERRL EOM: EOM intact bilaterally and No nystagmus Other: conjunctiva are not pale Neck Neck: normal visual inspection, full ROM, no lymphadenopathy, no meningeal signs, trachea midline and supple Lymphatic: no lymphadenopathy noted Resp Effort & Inspection: normal respiratory effort, able to speak in complete sentences, no audible wheezes, no nasal flaring, no respiratory distress, no retractions, no stridor, not tachypneic, no tracheal deviation, no use of accessory muscles, No prolonged expiratory phase and other (Normal inspiratory to expiratory ratio.) Auscultation: clear to auscultation bilaterally, no rales, no rhonchi, no wheezes and no rubs Tactile Fremitus: tactile fremitus absent Cardio Jugular venous pressure: no JVD Palpation: normal PMI Rate: regular rate Rhythm: regular rhythm Heart Sounds: S1 normal, S2 normal, no gallops, no murmurs and no rubs GI Inspection: non-distended Palpation: soft, no guarding and nontender Auscultation: normal bowel sounds Back/Spine/Pelvis Cervical Spine: normal cervical lordosis, cervical ROM normal and No pain with cervical ROM Skin General skin exam: no rashes or lesions noted, turgor normal, no petechiae, no purpura and other (Skin is normal for ethnicity.) Lesions: no lesions Rashes: no rashes Trauma: no lacerations or abrasions Neuro General: patient alert, patient awake, patient oriented x3, moves all extremities, no meningeal signs, no focal motor deficits and CN's II-XI intact bilaterally Cranial Nerves: CN's II-XI intact bilaterally, PERRL, EOM intact bilaterally, no nystagmus, facial strength normal, tongue midline, hearing normal and no nystagmus Cognition: normal cognition Speech: speech normal Gait: normal gait Motor: muscle tone normal throughout and strength 5/5 throughout Sensory Exam: no sensory deficits noted Extrem General: normal to inspection, full ROM, capillary refill normal, no clubbing, cyanosis or edema and no calf tenderness Psych Appearance: grossly normal Mood: anxious mood Affect: normal affect Attitude: cooperative Thought Process: normal Thought Content: normal Insight: insight good Judgment: judgment good Other: The patient appears to have capacity make medical decisions. Course 11:30 AM we have asked for a consult from ENT at [facility]. 11:45 AM I have spoken with Dr. Antwan Freitas from ENT. He is going to review the note speak with his attending and call us back. The patient is not having any further bleeding around the dressing. Dr. Freitas returned my call. He suggested that I remove the packing and instill ciprodex in the ear and place a sterile cotton ball with a pressure packing over the ear. He also advised that the patient be placed on po keflex to prevent infection. I advised him that i thought that the instillation of ciprodex would be not be essential to prevent infection if the patient was going to be placed on oral antibiotics and that I was reluctant to remove the packing that I had already placed because of the amount of bleeding that the patient had on presentation. I told him that I would discuss his recommendations with the patient. After shared decision making with the patient, he also expressed reluctance to have the packing replaced with sterile cotton. I advised him to call or text Dr. Young tomorrow (Monday), and to try to be seen within the next 48 hours at [facility] I advised him to take the Keflex as directed, along with a probiotic. I advised him to return to the ED for any new or worrisome symptoms, such as bleeding through the bandage, pain, fever, dizziness, chest pain or shortness of breath. The patient voiced understanding and agreement with the discharge plan. All his questions and concerns were addressed prior to dischange. Vital Signs Vital signs: Vital Signs Temperature 37.1 C 04/16/23 10:24 Pulse 117 H 04/16/23 10:24 Respiratory Rate 18 04/16/23 10:24 Blood Pressure 204/95 H 04/16/23 10:24 Pulse Oximetry 96 04/16/23 10:24 Temperature 37.1 C 04/16/23 10:24 Temperature Source Temporal Artery Scan 04/16/23 10:24 Pulse 117 H 04/16/23 10:24 Respiratory Rate 18 04/16/23 10:24 Blood Pressure 204/95 H 04/16/23 10:24 Blood Pressure Position Sitting 04/16/23 10:24 Pulse Oximetry 96 04/16/23 10:24 Oxygen Delivery Method Room Air 04/16/23 10:24 Oxygen Flow Rate 0 04/16/23 10:24 Procedures Other Description: 1115 AM left ear packing. After verbal consent, 1 inch plain gauze saturated with TXA was packed into the left ear canal and a pressure dressing was applied over the 4 x 4's to the left ear. The patient tolerated the procedure well. There was no bleeding throught the bandages after the dressing was placed Medical Decision Making This is a 73 yo M with h/o ASCVD and hypertension, not on theraputic anticoagulation, who is s/p a second cholesteroma resection from his left ear on 03/30/23 who presents with spontaneous bleeding from the left ear canal after having some of the packing removed by a PA at [facility] last week. He is hemodynamically stable. He is hypertensive and tachycardic, likely from anxiety and not taking his morning medications. He does not appear anemic and does not have any evidence of easy bruising. He does not have any chest pain or shortness of breath which might indicate cardiac ischemia from blood loss. There is no indication for blood work at this time. I have already packed the ear canal with sterile gauze saturated with TXA and the bleeding appears controlled. My plan is to discuss with ENT at [facility] and to observed the patient in the department. I will order his po antihypertensive medications and repeat his vital signs. If he remains stable we will likely discharge him and advise him to follow up with Dr. Young tomorrow. Differential Diagnosis Differential Diagnosis: Post op bleeding Medical Records Medical records reviewed: Yes I reviewed the patient's medical records. Quality:[facility] Health Related Social Needs: No Data to Display Discharge Plan Disposition Patient Disposition: Home Condition: Improving Discharge Details Clinical Impression: History of cholesteatoma, Bleeding from left ear Primary Care Provider: Mirta Villarreal ED Provider: Monalisa Tian Home Meds and New Rx's Prescriptions: New cephalexin 500 mg tablet 500 mg PO QID Qty: 40 0RF cephalexin 500 mg tablet 500 mg PO QID Qty: 40 0RF No Action multivitamin [Multiple Vitamins] 1 EACH tablet 1 ea PO DAILY amlodipine [Norvasc] 10 MG tablet 10 mg PO HS fluticasone propion-salmeterol [Advair Diskus] 1 EACH blister with device 1 puff Inhalation BID saw palmetto-pumpkin seed oil 160 MG capsule 160 mg PO DAILY fluvastatin 20 mg capsule 20 mg PO DAILY hydrochlorothiazide 12.5 mg capsule 12.5 mg PO DAILY Ultra CoQ10 75 mg capsule 75 mg PO DAILY pzvwdei-gxcc-ayglr-oreg-capryl 100 mg-150 mg- 50 mg-150 mg capsule 1 cap PO DAILY Discharge Instructions Additional Instructions: 1. Call your pulmonology physician tomorrow and notify him of today's visit. Tell him that we left the packing with TXA in the left ear and started you on cephalexin 500 mg every 6 hours. If you are having recurrent bleeding return here. We recommend that you take a probiotic while on antibiotics. Discharge Data Discharge Date/Time-TO BE ENTERED AT DEPARTURE: 04/16/23 12:59 Discharge Physician: Monalisa Tian
[2023-04-16] MEDS: Tranexamic Acid 1,000 MG/10 ML VIAL 1000 MG (11:10)
[2023-04-16 11:20] VITALS: BP 138/85; PULSE 91; TEMP 36.6; O2SAT 94
[2023-04-16] MEDS: hydroCHLOROthiazide 25 MG TAB 12.5 MG PO (11:32)
[2023-04-16 12:59] VITALS: BP 172/105; PULSE 86; RESP 16; TEMP 37.5; O2SAT 97
[2023-04-16] MEDS: Cephalexin 500 MG CAP PO (13:14)
== END 2023-04-16 12:59 | disposition home or self-care (01) ==
PROVIDERS: Emergency Provider Emergency Medicine Emergency Medical Services; PCP Nurse Practitioner Family
DX: H92.22 Otorrhagia, left ear (principal); T88.9XXA Complication of surgical and medical care, unspecified, initial encounter; Z86.69 Personal history of other diseases of the nervous system and sense organs; I10 Essential (primary) hypertension
CPT/HCPCS: 99283

== ENCOUNTER 2024-03-21 08:57 | Outpatient (REF) | payer MEDICARE, OTHER, SELFPAY ==
[2024-03-21 15:40] LABS: MCH 31.7 pg (27.0-33.0); MCHC 34.1 % (32.0-36.0); MCV 93 fL (80-95); MPV 10.8 fL (8.0-11.0); Platelet Count 297 10^3/uL (130-400); RBC 4.73 10^6/uL (4.36-5.78); RDW 13.9 % (11.8-14.1); RDW-SD 47.8 fL; WBC 5.45 10^3/uL (4.4-10.8)
[2024-03-21 15:56] LABS: ALT 20 U/L (16-63); AST 16 U/L (15-37); Albumin 4.1 g/dL (3.4-5.0); Alkaline Phosphatase 52 U/L (46-116); Anion Gap 9.8 mmol/L (3-11); BUN 18 mg/dL (7-18); Bilirubin, Total 0.77 mg/dL (0.2-1.0); CO2 27.2 mmol/L (21.0-32.0); CREATININE 0.8 mg/dL (0.70-1.30); Calcium 9.2 mg/dL (8.5-10.1); Calculated LDL 89 mg/dL (<100); Chloride 105 mmol/L (98-107); Cholesterol 176 mg/dL (<200); Estimated GFR 93.45 (mL/min/1.73m2); Glucose 93 mg/dL (74-106); HDL Cholesterol 74 mg/dL (40-60); Sodium 142 mmol/L (136-145); Total Protein 7.9 g/dL (6.4-8.2); Triglyceride 65 mg/dL (<150)
[2024-03-21 16:22] LABS: Hemoglobin A1C 5.8 % (<5.7)
[2024-03-22 18:24] LABS: PSA, Screening 0.9 ng/mL (<=6.5)
== END 2024-03-21 08:58 | disposition home or self-care (01) ==
LOC: NCHCN 08:57
PROVIDERS: PCP Nurse Practitioner Family; Visit Provider Nurse Practitioner Family
DX: E78.5 Hyperlipidemia, unspecified (principal); R73.03 Prediabetes; Z12.5 Encounter for screening for malignant neoplasm of prostate
CPT/HCPCS: 80053; 80061; 84153; 85027; 82043; 82570; 83036

== ENCOUNTER 2024-03-22 15:12 | Outpatient (REF) | payer MEDICARE, OTHER, SELFPAY ==
[2024-03-22 16:26] LABS: COMMENT (LAB VIEW ONLY) 191.61 mg/dL; Microalb ug/mg Crea 1.8 ug/mg Cr
== END 2024-03-22 15:13 | disposition home or self-care (01) ==
LOC: NCHCN 15:12
PROVIDERS: PCP Nurse Practitioner Family; Visit Provider Nurse Practitioner Family
DX: I10 Essential (primary) hypertension (principal)
CPT/HCPCS: 82043; 82570

== ENCOUNTER 2024-10-10 01:55 | Outpatient (CLI) | payer MEDICARE, OTHER, SELFPAY ==
--- NOTE | 2024-10-10 | DI.US_ITS ---
Exam(s) US THYROID EXAM: US THYROID CLINICAL HISTORY: R THYROID NODULE, E04.1. TECHNIQUE: Ultrasound thyroid performed using standard protocol. COMPARISON: None FINDINGS: Both thyroid lobes as well as the isthmus exhibit normal size and echotexture. There are no thyroid nodules nor cysts. There is no lymphadenopathy evident. IMPRESSION: Normal thyroid ultrasound exam DATA REPOSITORY:
== END 2024-10-10 02:15 ==
PROVIDERS: PCP Nurse Practitioner Family; Visit Provider Nurse Practitioner Family
DX: E04.1 Nontoxic single thyroid nodule (principal)
CPT/HCPCS: 76536

== ENCOUNTER 2024-11-04 02:24 | Outpatient (CLI) | payer MEDICARE, OTHER, SELFPAY ==
--- NOTE | 2024-11-04 | DI.RAD_ITS ---
Exam(s) XR TOE LT SECOND EXAM: XR TOE LT SECOND CLINICAL HISTORY: PAIN LT 2ND TOE,M79.675. TECHNIQUE: 2D digital imaging was performed. COMPARISON: No exams were available for comparison FINDINGS: 3 views There is evidence of prior great toe metatarsal bunion surgery with evidence of shaving the medial aspect of the head of the metatarsal and there is an osteotomy screw at this level. There are degenerative moderate degenerative changes in the great toe metatarsophalangeal joint. No evidence of acute fracture nor diastasis of the Lisfranc joint. There appears to be fusion across the proximal interphalangeal joint of the 2nd toe. No fusion across the interphalangeal joints of the other toes nor of the distal interphalangeal joint of the 2nd toe. There is some degenerative change in the DIP joint of the 2nd toe. IMPRESSION: There is fusion across the PIP joint of the 2nd toe and some degenerative change in the DIP joint of the 2nd toe. Prior bunion surgery great toe noted and degenerative changes in the great toe metatarsophalangeal joint. DATA REPOSITORY: RADIATION DOSE DELIVERED:
== END 2024-11-04 02:44 ==
LOC: DI 02:24
PROVIDERS: PCP Nurse Practitioner Family; Visit Provider Nurse Practitioner Family
DX: M19.072 Primary osteoarthritis, left ankle and foot (principal)
CPT/HCPCS: 73660

== ENCOUNTER 2025-03-21 12:24 | Outpatient (REF) | payer MEDICARE, OTHER, SELFPAY ==
[2025-03-21 15:42] LABS: HCT 42.8 % (40.0-50.0); HGB 14.8 g/dL (13.5-17.5); MCH 31.6 pg (27.0-33.0); MCHC 34.6 % (32.0-36.0); MCV 92 fL (80-95); MPV 10.6 fL (8.0-11.0); Platelet Count 281 10^3/uL (130-400); RBC 4.68 10^6/uL (4.36-5.78); RDW 13.0 % (11.8-14.1); RDW-SD 43.8 fL; WBC 5.55 10^3/uL (4.4-10.8)
[2025-03-21 16:01] LABS: ALT 20 U/L (10-49); AST 22 U/L (<34); Albumin 4.3 g/dL (3.2-5.0); Alkaline Phosphatase 53 U/L (46-116); Anion Gap 12.2 mmol/L (3-11); BUN 15 mg/dL (9-23); Bilirubin, Total 0.7 mg/dL (0.2-1.2); CO2 24.8 mmol/L (20.0-31.0); Calcium 9.4 mg/dL (8.3-10.6); Chloride 103 mmol/L (98-107); Cholesterol 165 mg/dL (<200); Glucose 104 mg/dL (74-106); HDL Cholesterol 65 mg/dL (>40); Potassium 3.4 mmol/L (3.5-5.1); Sodium 140 mmol/L (136-145); Total Protein 7.7 g/dL (5.7-8.2)
[2025-03-21 16:13] LABS: Hemoglobin A1C 5.6 % (<5.7)
== END 2025-03-21 12:25 | disposition home or self-care (01) ==
LOC: NCHCN 12:24
PROVIDERS: PCP Nurse Practitioner Family; Visit Provider Nurse Practitioner Family
DX: E78.5 Hyperlipidemia, unspecified (principal); I10 Essential (primary) hypertension; R73.03 Prediabetes
CPT/HCPCS: 80053; 80061; 85027; 83036